=== PATIENT | male | born 1950 | race Caucasian/White ===

== ENCOUNTER 2019-06-09 06:59 | Inpatient (IN) | payer OTHER ==
[~2019-06-09] VITALS: Ht 185.4 cm; Wt 92.1 kg
[2019-06-09 07:09] VITALS: Ht 185.4 cm; Wt 92.1 kg
[2019-06-09] MEDS ORDERED: LISINOPRIL40 MG PO (08:07)
[2019-06-09 08:08] LABS: BASOPHIL % 0.4 % (0-2); PLATELET COUNT 164 x10^3mcL (130-400); RED CELL DISTRIBUTION WIDTH 14.4 % (11.5-14.5)
[2019-06-09] MEDS ORDERED: CATAPRES0.1 MG PO (08:08)
[2019-06-09] MEDS ORDERED: FINASTERIDE5 M1 PO (08:09)
[2019-06-09] MEDS ORDERED: ATENOLOL25 MG PO (08:09)
[2019-06-09 09:23] LABS: UA SPECIFIC GRAVITY 1.015 (1.005-1.035); microscopic required? YES; urine erythrocyte TRACE (NEGATIVE)
[2019-06-09 09:36] LABS: CARBON DIOXIDE 30.3 mmol/L (21-32); CHLORIDE SERUM 104 mmol/L (98-107); GFR1 > 60 mL/min; GLUCOSE SERUM 97 mg/dL (74-106); SODIUM SERUM 144 mmol/L (136-145)
[2019-06-09 09:49] LABS: ALKALINE PHOSPHATASE 108 U/L (46-116); ALT/SGPT 23 U/L (16-63); AST/SGOT 19 U/L (15-37); BILIRUBIN TOTAL 0.79 mg/dL (0.20-1.00); T4(THYROXINE) 9.6 ug/dL (4.7-13.3); TOTAL PROTEIN, SERUM 7.8 g/dL (6.4-8.2)
[2019-06-09 10:03] VITALS: BP 221/118
[2019-06-09 13:10] VITALS: BP 137/80
[2019-06-09 15:26] VITALS: BP 155/87
[2019-06-09 15:54] VITALS: BP 127/80
[2019-06-09 20:42] VITALS: BP 137/72
[2019-06-10 05:48] VITALS: BP 111/62
[2019-06-10 07:37] VITALS: BP 109/62
[2019-06-10] MEDS ORDERED: LISINOPRIL40 MG PO (10:29)
[2019-06-10] MEDS ORDERED: FINASTERIDE5 M1 PO (10:30)
[2019-06-10] MEDS ORDERED: ADALAT CC30 MG PO (10:31)
[2019-06-10] MEDS ORDERED: HYDROCHLOROTHIA25 MG PO (11:37)
[2019-06-10 11:38] VITALS: BP 109/62
[2019-06-10 11:52] VITALS: BP 129/72
== END 2019-06-10 13:24 | disposition home or self-care (01) | DRG 305 ==
LOC: ED 06:59 → DU 08:47
PROVIDERS: Emergency Medicine; ADMIT Internal Medicine Pulmonary Disease
DX: I16.0 Hypertensive urgency (principal); I10 Essential (primary) hypertension; N40.0 Benign prostatic hyperplasia without lower urinary tract symptoms
CPT/HCPCS: 83880; 90658; G0378; J2405; J3490